=== PATIENT | male | born 1970 | race Caucasian/White ===

== ENCOUNTER 2022-09-02 11:28 | Emergency (ER) | payer MEDICAID ==
[2022-09-02 12:16] VITALS: BP 141/95; PULSE 91
[2022-09-02] MEDS ORDERED: Oxymetazoline 0.05% Nasal Spray 30 ML Bottle NAS ONE (12:17)
[2022-09-02] MEDS ORDERED: Lidocaine 2% Viscous Solution 15 ML UD PO ONE (12:37)
== END 2022-09-02 14:08 ==
LOC: MW.ED 11:28
DX: R04.0 Epistaxis (principal)
CPT/HCPCS: 30903; 99283; A9270